=== PATIENT | male | born 1990 | race Hispanic/Latino ===

== ENCOUNTER → 2019-12-17 | Outpatient (CLI) | payer BC ==
--- NOTE | 2019-12-17 13:10 | Diagnostic Imaging Report ---
EXAM: Renal Ultrasound INDICATION: ^Frequency of micturition; Feeling of incomplete bladder COMPARISON: None TECHNIQUE: Transverse and longitudinal images of the kidneys and bladder were obtained. FINDINGS: Right Kidney: Length: 11.2 cm Appearance: Normal echogenicity. Collecting system: No hydronephrosis Stones: None Cyst/Mass: None Left Kidney: Length: 11.7 cm Appearance: Normal echogenicity. Collecting system: No hydronephrosis Stones: None Cyst/Mass: None Bladder: Unremarkable. Bilateral jets are noted, right greater than left. Prevoid volume of 63 cc and postvoid volume of 4 cc is noted. Incidentally noted increased echogenicity of the liver is noted. IMPRESSION: Unremarkable renal ultrasound. Incidentally noted hepatic steatosis. Signed by: Serge Calvert MD on 12/17/2019 1:07 PM
== END ==
LOC: US 11:52
PROVIDERS: ATTEND Urology
DX: R35.0 Frequency of micturition (principal); R39.14 Feeling of incomplete bladder emptying
CPT/HCPCS: 76770; 76857